=== PATIENT | male | born 1960 | race Caucasian/White ===

== ENCOUNTER → 2016-05-14 | Outpatient (CLI) | payer OTHER ==
--- NOTE | 2016-05-14 11:56 | REP ---
MR LUMBAR SPINE WITHOUT CONTRAST: HISTORY: Back pain. Decreased signal intensity on T2-weighted images is present in the L2-3 through L4-5 intervertebral discs. The discs are decreased in height. These findings are consistent with disc degeneration. There is no disc bulge or herniation at the L1-2 level. The L1 nerves exit the neural foramina without compression. A diffuse disc bulge is present at the L2-3 level. There is minimal compression of the thecal sac. There is hypertrophy of the posterior articulating facets. The L2 nerves exit the neural foramina without compresssion. A diffuse disc bulge is present at the L3-4 level. There is minimal compression of the thecal sac. There is hypertrophy of the posterior articulating facets. The L3 nerves exit the neural foramina without compression. A diffuse disc bulge is present at the L4-5 level. There is minimal compression of the thecal sac. There is hypertrophy of the posterior articulating facets. The L4 nerves exit the neural foramina without compression. A diffuse disc bulge is present at the L5 S1 level. This abuts the thecal sac. There is hypertrophy of the posterior articulating facets. There are 3 mm of grade 1 spondylolisthesis of L5 on S1. The L5 nerves exit the neural foramina without compression. The conus medullaris is normal in appearance terminating at the level of the T12-L1 intervertebral disc. Normal signal intensity is present in the lumbar vetebral bodies. IMPRESSION: Diffuse disc bulges at the L2-3 through L4-5 levels with minimal thecal sac compression. Diffuse disc bulge at the L5-L1 level. This abuts the thecal sac. There is grade 1 spondylolisthesis of L5 on S1. Signed by Armond Sumner MD 05/14/2016 12:03 P
== END ==
LOC: M RAD 09:05
PROVIDERS: ATTEND Internal Medicine
DX: M54.5 Low back pain (principal)

== ENCOUNTER → 2018-04-28 | Outpatient (REF) | payer OTHER, BC ==
[2018-04-28 18:21] LABS: APPEARANCE, URINE CLEAR (CLEAR); BACTERIA, URINE AUTO NEGATIVE (NEGATIVE); BILIRUBIN, URINE AUTO NEGATIVE (NEGATIVE); BLOOD, URINE BLOOD NEGATIVE (NEGATIVE); COLOR, URINE YELLOW (YELLOW); GLUCOSE, URINE (UA) AUTO NEGATIVE (NEGATIVE); KETONE, URINE AUTO NEGATIVE (NEGATIVE); LEUKOCYTE ESTERASE, URINE AUTO NEGATIVE (NEGATIVE); MUCUS, URINE SMALL (NEGATIVE); NITRITE, URINE AUTO NEGATIVE (NEGATIVE); PROTEIN, URINE AUTO NEGATIVE (NEGATIVE); RBC, URINE AUTO 1 /HPF (0-3); SPECIFIC GRAVITY URINE AUTO 1.014 (1.002-1.035); SQUAMOUS EPITHELIAL CELL UR AU 0 /HPF (0-6); UROBILINOGEN, URINE AUTO 0.2 mg/dL (0.0-2.0); WBC, URINE AUTO 1 /HPF (0-3)
== END ==
LOC: M SMT 16:51
PROVIDERS: ATTEND Nurse Practitioner Family
DX: R30.0 Dysuria (principal)

== ENCOUNTER → 2018-04-28 | Outpatient (CLI) | payer BC ==
[2018-04-28 16:24] LABS: BLOOD UREA NITROGEN 18 MG/DL (7-18); CALCIUM LEVEL 9.2 MG/DL (8.5-10.1); CARBON DIOXIDE LEVEL 28 MEQ/L (21-32); CHLORIDE LEVEL 101 MEQ/L (98-107); CREATININE FOR GFR 1.03 MG/DL (0.70-1.30); GLOMERULAR FILTRATION RATE > 60.0 (>56); GLUCOSE, FASTING 90 MG/DL (70-100); POTASSIUM SERUM 4.6 MEQ/L (3.5-5.1); SODIUM LEVEL 137 MEQ/L (136-145)
== END ==
LOC: M SMT 14:09
PROVIDERS: ATTEND Nurse Practitioner Family
DX: N20.0 Calculus of kidney (principal); Q61.00 Congenital renal cyst, unspecified; Z12.5 Encounter for screening for malignant neoplasm of prostate

== ENCOUNTER → 2018-05-19 | Outpatient (REF) | payer BC ==
[2018-05-19 14:19] LABS: APPEARANCE, URINE CLEAR (CLEAR); BACTERIA, URINE AUTO NEGATIVE (NEGATIVE); BILIRUBIN, URINE AUTO NEGATIVE (NEGATIVE); BLOOD, URINE BLOOD NEGATIVE (NEGATIVE); CALCIUM OXALATE CRYSTALS SMALL; COLOR, URINE YELLOW (YELLOW); GLUCOSE, URINE (UA) AUTO NEGATIVE (NEGATIVE); KETONE, URINE AUTO TRACE mg/dL (NEGATIVE); LEUKOCYTE ESTERASE, URINE AUTO NEGATIVE (NEGATIVE); MUCUS, URINE SMALL (NEGATIVE); NITRITE, URINE AUTO NEGATIVE (NEGATIVE); PROTEIN, URINE AUTO NEGATIVE (NEGATIVE); RBC, URINE AUTO 3 /HPF (0-3); SPECIFIC GRAVITY URINE AUTO 1.026 (1.002-1.035); SQUAMOUS EPITHELIAL CELL UR AU 0 /HPF (0-6); UROBILINOGEN, URINE AUTO 0.2 mg/dL (0.0-2.0); WBC, URINE AUTO 0 /HPF (0-3)
== END ==
LOC: M SMT 13:22
PROVIDERS: ATTEND Nurse Practitioner Family
DX: R30.0 Dysuria (principal)

== ENCOUNTER → 2018-09-01 | Outpatient (REF) | payer BC ==
[2018-09-01 14:14] LABS: APPEARANCE, URINE CLEAR (CLEAR); BACTERIA, URINE AUTO NEGATIVE (NEGATIVE); BILIRUBIN, URINE AUTO NEGATIVE (NEGATIVE); BLOOD, URINE BLOOD NEGATIVE (NEGATIVE); COLOR, URINE YELLOW (YELLOW); GLUCOSE, URINE (UA) AUTO NEGATIVE (NEGATIVE); KETONE, URINE AUTO NEGATIVE (NEGATIVE); LEUKOCYTE ESTERASE, URINE AUTO NEGATIVE (NEGATIVE); MUCUS, URINE SMALL (NEGATIVE); NITRITE, URINE AUTO NEGATIVE (NEGATIVE); PROTEIN, URINE AUTO NEGATIVE (NEGATIVE); RBC, URINE AUTO 0 /HPF (0-3); SPECIFIC GRAVITY URINE AUTO 1.016 (1.002-1.035); SQUAMOUS EPITHELIAL CELL UR AU 0 /HPF (0-6); UROBILINOGEN, URINE AUTO 0.2 mg/dL (0.0-2.0); WBC, URINE AUTO 0 /HPF (0-3)
== END ==
LOC: M SMT 13:46
PROVIDERS: ATTEND Nurse Practitioner Family
DX: N20.0 Calculus of kidney (principal)

== ENCOUNTER → 2018-09-01 | Outpatient (CLI) | payer BC ==
--- NOTE | 2018-09-01 11:17 | REP ---
KUB: Single view. HISTORY: Kidney stone. No comparison imaging. FINDINGS: Bowel gas pattern is normal. No upper tract calcification can be seen. There is an irregular calcific density to the left side of midline in the central pelvis at the level of the iliac spines. This measures 1.1 cm in greatest diameter and could be a distal ureteral stone in the left ureter. There are phleboliths bilaterally in the pelvis as well. Overlying the left psoas, there is a 3 mm of calcific opacity which could conceivably be a in the mid ureter as well. IMPRESSION: A 11 mm calcific opacity in the left true pelvis could be in the distal ureter. There is a smaller 3 mm calcification overlying the left psoas muscle as well. This could also be ureteral. Electronically Signed by Charlie Tomlinson MD 09/01/2018 03:30 P
== END ==
LOC: M SMT 09:08
PROVIDERS: ATTEND Nurse Practitioner Family
DX: N20.0 Calculus of kidney (principal)

== ENCOUNTER → 2018-10-20 | Outpatient (CLI) | payer BC ==
[~2018-10-20] MED LIST: GABA-843 PO; HYDR-3363 PO; ISOVUE-370 76% 100ML VIAL (Q9967) As Ordered ONE; LOSA25TA14 PO; PERC10TA26 PO
--- NOTE | 2018-10-20 10:16 | REP ---
CT ABDOMEN WITHOUT AND WITH CONTRAST: 10/20/2018. Clinical history: Complex renal cyst. No comparison renal studies. A CT lumbar with contrast shows portions of the kidneys, 08/30/2018. Technique: Noncontrast abdominal images with a bolus 100 mL Isovue 370 with three-phase imaging performed. Coronal and sagittal reconstructions provided. Findings: The precontrast images show 1.8 x 1.2 x 1.4 cm interpolar peripheral complex cyst. It has linear and nodular calcification peripherally. Precontrast attenuation of the noncalcified portion is about 37 HU. The three-phase images show similar CT attenuation values in the mid upper 30s, no enhancement. There is a simple cyst upper pole on the left up to 1.7 cm. There is also a parapelvic cyst with a punctate calcification in the interpolar upper pole junction on the left. There are a few other subcentimeter and centimeter sized cyst bilaterally. There is no hydronephrosis or hydroureter. Adrenal glands are normal. The aorta is without aneurysm. No periaortic, retroperitoneal or mesenteric pathologic sized lymphadenopathy. Incidental note made of rim calcified gallstones in the dependent gallbladder. No biliary dilatation. Liver and spleen are not enlarged and show no focal lesion. There is no ascites. Adrenal glands, pancreas and stomach unremarkable. Lung window review of all CT slices show no perforation or free air. The bone windows show some degenerative changes of lower thoracic and mid lumbar region anteriorly but no compression deformity or destructive lesion. Facet arthropathy lower lumbar spine without spondylolysis or spondylolisthesis. Visualized bowel loops without acute abnormality. Impression: 1. Bosniak IIF cystic lesion in the interpolar periphery left kidney with some nodular peripheral calcification but no enhancement. Lesions in this category should be followed, I would suggest a dedicated study in 6 months time. 2. Other simple cysts bilaterally. 3. A few rim calcified gallstones in the dependent gallbladder without biliary dilatation. Liver and spleen, adrenal glands, pancreas, aorta and bones without acute finding. Electronically Signed by Kristopher Arias MD 10/20/2018 03:05 P
== END ==
LOC: M RAD 08:27
PROVIDERS: ATTEND Urology
DX: N28.1 Cyst of kidney, acquired (principal)
CPT/HCPCS: 74170; Q9967

== ENCOUNTER 2019-02-26 05:47 | Day surgery (SDC) | payer BC ==
[~2019-02-26] VITALS: Ht 188 cm; Wt 116.1 kg
[~2019-02-26 05:47] MED LIST changes: -ISOVUE-370 76% 100ML VIAL (Q9967) As Ordered ONE
[2019-02-26] MEDS ORDERED: ceFAZolin 2 GM/D5W 50 ML IV BAG (J0690 PER 500MG) As Ordered ONE (06:37)
[2019-02-26] MEDS ORDERED: CONRAY-60 60% 50ML VIAL (Q9961) As Ordered ONE (07:10)
[2019-02-26] MEDS ORDERED: dexameTHASONE 4 MG/ML 1ML VIAL (J1100) As Ordered ONE (07:19)
[2019-02-26] MEDS ORDERED: PROPOFOL 200 MG/20 ML VIAL As Ordered ONE ×2 (07:19→07:50)
[2019-02-26] MEDS ORDERED: LIDOCAINE 2% INJ 100 MG/5 ML SYRINGE As Ordered ONE (07:19)
[2019-02-26] MEDS ORDERED: fentaNYL 100 MCG/2 ML INJECTION (J3010) As Ordered ONE (07:20)
[2019-02-26] MEDS ORDERED: MIDAZOLAM INJ 2 MG/2 ML VIAL (J2250) As Ordered ONE (07:20)
[2019-02-26] MEDS ORDERED: ceFAZolin SOD 2 GM in IV 1 EA IV ONE (08:00)
[2019-02-26] MEDS ORDERED: LR 1,000 ML IV ONE (08:00)
[2019-02-26] MEDS ORDERED: ONDANSETRON 4MG/2ML VIAL (J2405) As Ordered ONE (08:03)
[2019-02-26] MEDS ORDERED: KETOROLAC 60 MG/2 ML VIAL (J1885) As Ordered ONE (08:12)
[2019-02-26] MEDS ORDERED: ONDANSETRON 4MG/2ML VIAL (J2405) IV PRN (09:15)
[2019-02-26] MEDS ORDERED: IBUPROFEN 600 MG TAB PO PRN (09:15)
[2019-02-26] MEDS ORDERED: HYDROMORPHONE HCL 0.5 MG/ 0.5 ML SYRINGE (J1170 PER 1) IV PRN (09:15)
[2019-02-26] MEDS ORDERED: fentaNYL 100 MCG/2 ML INJECTION (J3010) IV PRN (09:15)
[2019-02-26] MEDS ORDERED: PERCOCET 5MG/325MG TAB PO PRN (09:15)
[2019-02-26] MEDS ORDERED: LR 1,000 ML IV SCH ×2 (09:15)
--- NOTE | 2019-02-26 09:54 | REP ---
Retrograde pyelogram: Four views. History: Nephrolithiasis. Fluoroscopy time is 39 seconds. Findings: A sequence of four last image hold fluoroscopically obtained spot radiographs of the left abdomen document a left ureteral cannulation, contrast injection, and guidewire and stent placement. Electronically Signed by Charlie Tomlinson MD 02/26/2019 10:25 A
[2019-02-26 10:30] VITALS: BP 122/78
--- NOTE | 2019-02-27 10:53 | RO ---
DATE OF SURGERY: 02/26/2019 PREOPERATIVE DIAGNOSIS: Distal left ureteral calculus. POSTOPERATIVE DIAGNOSIS: Distal left ureteral calculus. PROCEDURE: Cystoscopy, left retrograde pyelogram, ureteroscopic laser lithotripsy, stone extraction, and stent insertion. SURGEON: Dr. Herve Trinidad ANESTHESIA: General. INDICATION FOR OPERATION: This is a 59-year-old white male, who was seen in the clinic for voiding difficulties. Cystoscopy showed that he had a lot of inflammation around the left ureteral orifice, and review of his prior x-rays showed a distal left ureteral calculus. He was therefore brought to the operating room for treatment. DESCRIPTION OF OPERATION: The patient was anesthetized with general anesthesia after being placed on the cysto table. He was then placed in the lithotomy position, prepped with Betadine paint, and draped. A cystoscope was then inserted into the meatus and advanced under direct vision of a 30-degree lens to the bladder. There was some inflammation around the left ureter orifice. The right ureteral orifice was normal, and the rest of the bladder appeared normal. A #5-Burmese cone-tipped catheter was then introduced into the left ureteral orifice, and retrograde injection of Conray showed the patient had a large stone in the distal left ureter with no other stones seen in the upper ureter or renal pelvis. A wire guide was then left in place, and the cystoscope was removed. A ureteroscope was then advanced alongside the safety wire up to the stone. I then tried to engage the stone in a basket unsuccessfully. The laser lithotripter was then deployed and the stone was broken into small fragments. The larger fragments were extracted with a basket. When all of the stones were removed from the ureter, the ureteroscope was removed, and the cystoscope was backloaded over the safety wire. A #5-Burmese double J stent was then passed over this wire and curled well in the renal pelvis and in the bladder when the wire was removed. The stone fragments were then retrieved, bladder was drained, cystoscope was removed, and the patient was awakened and sent to recovery room in stable condition having tolerated the procedure well.
== END 2019-02-26 10:40 | disposition home or self-care (01) ==
LOC: M SDC 05:47
PROVIDERS: ATTEND Urology
DX: N20.0 Calculus of kidney (principal); N20.1 Calculus of ureter; I10 Essential (primary) hypertension; F41.9 Anxiety disorder, unspecified; Z79.899 Other long term (current) drug therapy; F17.220 Nicotine dependence, chewing tobacco, uncomplicated
CPT/HCPCS: 52356; 74420; 82360; 88300; C1769; C2617; J0690; J1100; J1885; J2250; J2405; J3010; Q9961

== ENCOUNTER → 2019-07-12 | Outpatient (REF) | payer BC ==
[2019-07-12 19:29] LABS: APPEARANCE, URINE TURBID (CLEAR); BACTERIA, URINE AUTO NEGATIVE (NEGATIVE); BILIRUBIN, URINE AUTO NEGATIVE (NEGATIVE); BLOOD, URINE BLOOD NEGATIVE (NEGATIVE); COLOR, URINE YELLOW (YELLOW); GLUCOSE, URINE (UA) AUTO NEGATIVE (NEGATIVE); KETONE, URINE AUTO TRACE mg/dL (NEGATIVE); LEUKOCYTE ESTERASE, URINE AUTO NEGATIVE (NEGATIVE); MUCUS, URINE SMALL (NEGATIVE); NITRITE, URINE AUTO NEGATIVE (NEGATIVE); PROTEIN, URINE AUTO NEGATIVE (NEGATIVE); RBC, URINE AUTO 0 /HPF (0-3); SPECIFIC GRAVITY URINE AUTO 1.029 (1.002-1.035); SQUAMOUS EPITHELIAL CELL UR AU 0 /HPF (0-6); UROBILINOGEN, URINE AUTO 0.2 mg/dL (0.0-2.0); WBC, URINE AUTO 1 /HPF (0-3)
== END ==
LOC: M SMT 18:07
PROVIDERS: ATTEND Nurse Practitioner Women's Health
DX: N40.0 Benign prostatic hyperplasia without lower urinary tract symptoms (principal); N32.9 Bladder disorder, unspecified

== ENCOUNTER → 2023-01-14 | Outpatient (CLI) | payer BC ==
[~2023-01-14] MED LIST changes: +GABA-282 PO; -GABA-843 PO; +LOSA25TA13 PO; -LOSA25TA14 PO
== END ==
LOC: M SOG 14:53
PROVIDERS: ATTEND Orthopaedic Surgery Hand Surgery
DX: Z53.9 Procedure and treatment not carried out, unspecified reason (principal)

== ENCOUNTER → 2023-07-07 | Outpatient (CLI) | payer OTHER ==
[2023-07-07 15:42] LABS: BASO % 0.7 % (0.0-1.0); EOS # 0.1 10^3/uL (0.0-0.5); EOS % 1.2 % (0.0-3.0); HEMATOCRIT 42.7 % (42.0-52.0); HEMOGLOBIN 14.4 g/dl (13.5-17.5); LYMPH # 1.5 10^3/uL (1.5-5.0); MEAN CORPUSCULAR HEMOGLOBIN 29.4 pg (27.0-33.0); MEAN CORPUSCULAR HGB CONC 33.7 g/dl (32.0-36.5); MEAN CORPUSCULAR VOLUME 87.1 fl (80.0-96.0); MONO # 0.3 10^3/uL (0.0-0.8); MONO % 6.7 % (2.0-8.0); NEUTROPHILS # 2.5 10^3/uL (1.5-8.5); NEUTROPHILS % 56.9 % (36.0-66.0); PLATELET COUNT, AUTOMATED 202 10^3/uL (150-450); WHITE BLOOD COUNT 4.3 10^3/uL (4.0-10.0)
[2023-07-07 16:08] LABS: ALBUMIN 4.3 G/DL (3.2-5.2); ALKALINE PHOSPHATASE 162 U/L (46-116); ALT/SGPT 26 U/L (7.0-40); AST/SGOT 13 U/L (<34); BILIRUBIN,TOTAL 0.5 MG/DL (0.3-1.2); BLOOD UREA NITROGEN 25 MG/DL (9-23); CALCIUM LEVEL 9.9 MG/DL (8.3-10.6); CARBON DIOXIDE LEVEL 28 MMOL/L (20-31); CHLORIDE LEVEL 102 MMOL/L (98-107); CHOLESTEROL LEVEL 221 MG/DL (<200); CHOLESTEROL RISK RATIO 2.82 (<5); CREATININE FOR GFR 0.87 MG/DL (0.70-1.30); GLOMERULAR FILTRATION RATE > 60.0 (>49); GLUCOSE, FASTING 96 MG/DL (74-106); HDL CHOLESTEROL 78.2 MG/DL (>40); NON-HDL-C 142.8 MG/DL; POTASSIUM SERUM 4.3 MMOL/L (3.5-5.1); PSA SCREENING 0.44 NG/ML (< 4.00); SODIUM LEVEL 138 MMOL/L (136-145); TRIGLYCERIDES LEVEL 134 MG/DL (<150)
== END ==
LOC: M PLAIMG 12:19
PROVIDERS: ATTEND Family Medicine
DX: R06.02 Shortness of breath (principal); E78.2 Mixed hyperlipidemia; Z12.5 Encounter for screening for malignant neoplasm of prostate; N52.9 Male erectile dysfunction, unspecified
CPT/HCPCS: 36415; 71046; 80053; 80061; 84402; 84403; 85025; G0103

== ENCOUNTER → 2023-09-01 | Outpatient (CLI) | payer OTHER ==
[2023-09-01 15:29] LABS: FOLLICLE STIMULATING HORMONE 40.4 mIU/ML (1.4-18.1); LUTEINIZING HORMONE 5.3 mIU/ML (1.5-9.3)
[2023-09-01 15:30] LABS: ESTRADIOL < 19.0 PG/ML (<39.8); TESTOSTERONE 277 NG/DL (241-827)
== END ==
LOC: M PLALAB 09:29
PROVIDERS: ATTEND Physician Assistant
DX: E29.1 Testicular hypofunction (principal)

== ENCOUNTER 2024-07-18 07:32 | Day surgery (SDC) | payer MEDICARE ==
[~2024-07-18] VITALS: Ht 188 cm; Wt 124.7 kg
[~2024-07-18 07:32] MED LIST changes: +ATIV1TAB10 PO; +ATOR40TA75 PO; +GABA-1172 PO; -GABA-282 PO; +LOSA100T46 PO; +PANT40TA29 PO; +PARO20TA3 PO
[2024-07-18] MEDS ORDERED: propofoL 200 MG/20 ML VIAL As Ordered ONE (08:23)
[2024-07-18] MEDS ORDERED: fentaNYL 100 MCG/2 ML INJECTION As Ordered ONE (08:38)
[2024-07-18 09:07] VITALS: TEMP 98.5
[2024-07-18 10:04] VITALS: BP 153/97; O2SAT 97
== END 2024-07-18 10:04 | disposition home or self-care (01) ==
LOC: M OPP 07:32
PROVIDERS: ATTEND Surgery
DX: Z12.11 Encounter for screening for malignant neoplasm of colon (principal); Z12.12 Encounter for screening for malignant neoplasm of rectum; D12.3 Benign neoplasm of transverse colon; K21.00 Gastro-esophageal reflux disease with esophagitis, without bleeding; K64.1 Second degree hemorrhoids; R13.10 Dysphagia, unspecified; K29.50 Unspecified chronic gastritis without bleeding; K22.89 Other specified disease of esophagus; I10 Essential (primary) hypertension; E78.00 Pure hypercholesterolemia, unspecified; Z79.899 Other long term (current) drug therapy; Z85.828 Personal history of other malignant neoplasm of skin; F41.9 Anxiety disorder, unspecified; F32.A Depression, unspecified; F17.290 Nicotine dependence, other tobacco product, uncomplicated; Z88.8 Allergy status to other drugs, medicaments and biological substances
CPT/HCPCS: 43239; 45385; 88305; J3010